=== PATIENT | male | born 1965 | race African-American/Black ===

== ENCOUNTER 2016-11-03 09:43 | Emergency (ER) | payer MEDICAID ==
[~2016-11-03] VITALS: Ht 172.7 cm; Wt 63.0 kg
[2016-11-03] MEDS ORDERED: SODIUM CHLORIDE 0.9% 1,000 ML IV ONE (10:43)
[2016-11-03] MEDS ORDERED: ONDANSETRON HCL 4MG/2ML VIAL IV STA (10:43)
[2016-11-03] MEDS ORDERED: KETOROLAC 30MG/ML VIAL IV STA (10:43)
[2016-11-03] MEDS ORDERED: ALBUTEROL (0.083%) 2.5MG/3ML NEB HHN STA (10:43)
[2016-11-03] MEDS ORDERED: FAMOTIDINE 20MG/2ML VIAL IV STA (10:43)
[2016-11-03] MEDS ORDERED: IPRATROPIUM BROMIDE (0.02%) 0.5MG/2.5ML NEB HHN STA (10:43)
[2016-11-03 11:10] LABS: BASOPHILS % 0.9 % (0.0-2.0); EOSINOPHILS % 0.6 % (0.0-5.0); HEMATOCRIT. 45.9 % (42.0-52.0); HEMOGLOBIN. 15.9 g/dL (14.0-18.0); LYMPHOCYTES % 25.2 % (20.0-50.0); MEAN CORPUSCULAR HEMOGLOBIN 30.8 pg (28.0-32.0); MEAN CORPUSCULAR VOLUME 88.9 fL (80.0-94.0); MEAN PLATELET VOLUME 6.5 fl (7.4-10.4); MONOCYTES % 8.9 % (2.0-8.0); NEUTROPHILS % 64.4 % (40.0-76.0); PLATELET 236 x1000/uL (130-400); RED BLOOD CELL COUNT 5.16 mill/uL (4.7-6.1)
[2016-11-03 11:23] LABS: CARBON DIOXIDE 29 mEq/L (21-32); CHLORIDE 105 mEq/L (98-107); ETHANOL BLOOD < 10 mg/dL
[2016-11-03] MEDS ORDERED: ONDANSETRON HCL 4MG/2ML VIAL IV NR (11:45)
[2016-11-03 14:26] VITALS: BP 123/75
[2016-11-03 14:27] LABS: CLARITY URINE CLEAR (CLEAR); COLOR URINE YELLOW (YELLOW); GLUCOSE URINE NEGATIVE (NEGATIVE); KETONES URINE NEGATIVE (NEGATIVE); LEUKOCYTE ESTERASE URINE NEGATIVE (NEGATIVE); NITRITE URINE NEGATIVE (NEGATIVE); OCCULT BLOOD URINE NEGATIVE (NEGATIVE); PH URINE 6.5 (4.5-8.0); PROTEIN URINE NEGATIVE (NEGATIVE); SPECIFIC GRAVITY URINE 1.007 (1.005-1.030)
== END 2016-11-03 14:29 | disposition home or self-care (01) ==
LOC: ER 10:55
DX: K52.9 Noninfective gastroenteritis and colitis, unspecified (principal); J06.9 Acute upper respiratory infection, unspecified; R03.0 Elevated blood-pressure reading, without diagnosis of hypertension; E11.9 Type 2 diabetes mellitus without complications; Z91.19 Patient's noncompliance with other medical treatment and regimen; J40 Bronchitis, not specified as acute or chronic
CPT/HCPCS: 36415; 71020; 80053; 81003; 83690; 85025; 94640; 96361; 96374; 96375; 99285; G0482; J1885; J2405; J3490; J7030; J7611; Z7610

== ENCOUNTER 2017-03-14 20:21 | Emergency (ER) | payer MEDICAID ==
[~2017-03-14] VITALS: Ht 172.7 cm; Wt 63.0 kg
[2017-03-14 21:01] LABS: CLARITY URINE CLEAR (CLEAR); COLOR URINE YELLOW (YELLOW); KETONES URINE NEGATIVE (NEGATIVE); LEUKOCYTE ESTERASE URINE NEGATIVE (NEGATIVE); NITRITE URINE NEGATIVE (NEGATIVE); OCCULT BLOOD URINE NEGATIVE (NEGATIVE); PH URINE 5.5 (4.5-8.0); PROTEIN URINE NEGATIVE (NEGATIVE); SPECIFIC GRAVITY URINE 1.009 (1.005-1.030)
[2017-03-15] MEDS ORDERED: IPRATROPIUM/ALBUTEROL 0.5-3(2.5)MG/3ML NEB HHN SCH (03:45)
[2017-03-15] MEDS ORDERED: KETOROLAC 30MG/ML VIAL IM ONE (04:00)
[2017-03-15] MEDS ORDERED: ONDANSETRON 4MG ODT PO ONE (04:00)
[2017-03-15 04:01] LABS: BASOPHILS % 0.6 % (0.0-2.0); EOSINOPHILS % 1.4 % (0.0-5.0); HEMATOCRIT. 44.9 % (42.0-52.0); HEMOGLOBIN. 15.4 g/dL (14.0-18.0); LYMPHOCYTES % 25.7 % (20.0-50.0); MEAN CORPUSCULAR HEMOGLOBIN 30.3 pg (28.0-32.0); MEAN CORPUSCULAR VOLUME 88.6 fL (80.0-94.0); MEAN PLATELET VOLUME 6.8 fl (7.4-10.4); NEUTROPHILS % 61.3 % (40.0-76.0); PLATELET 233 x1000/uL (130-400); RED BLOOD CELL COUNT 5.07 mill/uL (4.7-6.1); RED CELL DISTRIBUTION WIDTH 12.8 % (11.6-14.6)
[2017-03-15 04:07] LABS: INR 1.1
[2017-03-15 04:12] LABS: CARBON DIOXIDE 31 mEq/L (21-32); CHLORIDE 95 mEq/L (98-107)
[2017-03-15 06:42] VITALS: BP 111/82
== END 2017-03-15 07:00 | disposition home or self-care (01) ==
LOC: ER 21:03
DX: J45.901 Unspecified asthma with (acute) exacerbation (principal); E11.9 Type 2 diabetes mellitus without complications; F17.210 Nicotine dependence, cigarettes, uncomplicated
CPT/HCPCS: 36415; 71010; 80053; 81003; 85025; 85610; 94640; 96372; 99285; J1885; J7620; Q0162; Z7610

== ENCOUNTER 2024-02-28 18:20 | Emergency (ER) | payer MEDICAID, OTHER ==
[~2024-02-28] VITALS: Ht 172.7 cm; Wt 59.0 kg
[2024-02-28 19:08] VITALS: O2SAT 100
[2024-02-28] MEDS: ACETAMINOPHEN 325MG TABLET PO ONE (21:50)
[2024-02-28 22:00] LABS: BASOPHILS % 0.9 % (0.0-2.0); EOSINOPHILS % 1.9 % (0.0-5.0); HEMATOCRIT. 44.8 % (42.0-52.0); HEMOGLOBIN. 14.9 g/dL (14.0-18.0); LYMPHOCYTES % 19.5 % (20.0-50.0); MEAN CORPUSCULAR HEMOGLOBIN 30.1 pg (28.0-32.0); MEAN CORPUSCULAR HGB CONC 33.3 g/dL (31.0-37.0); MEAN CORPUSCULAR VOLUME 90.4 fL (80.0-94.0); MEAN PLATELET VOLUME 6.8 fl (7.4-10.4); MONOCYTES % 7.9 % (2.0-8.0); NEUTROPHILS % 69.8 % (40.0-76.0); PLATELET 241 x1000/uL (130-400); RED BLOOD CELL COUNT 4.95 mill/uL (4.7-6.1)
[2024-02-28 22:03] LABS: CHLORIDE 107 mEq/L (98-107); POTASSIUM 4.4 mEq/L (3.5-5.1); SODIUM 140 mEq/L (136-145)
[2024-02-28 22:04] LABS: CARBON DIOXIDE 29 mEq/L (21-32)
[2024-02-28 22:05] LABS: CALCIUM 9.3 mg/dL (8.7-10.4)
[2024-02-28 22:10] LABS: GLUCOSE 84 mg/dL (70-105); UREA NITROGEN BLOOD 9 mg/dL (9-23)
[2024-02-28] MEDS ORDERED: ACET-2708 MT (22:59)
[2024-02-28] MEDS ORDERED: CYCL10TA21 MT (22:59)
[2024-02-28 23:06] VITALS: BP 120/80; PULSE 75; RESP 16; TEMP 36.83628; O2SAT 100
== END 2024-02-28 23:09 | disposition home or self-care (01) ==
LOC: ER 18:20
DX: G89.29 Other chronic pain (principal); M54.50 Low back pain, unspecified; M79.10 Myalgia, unspecified site; Z88.6 Allergy status to analgesic agent
CPT/HCPCS: 36415; 80048; 85025; 99283

== ENCOUNTER 2024-12-16 21:44 | Emergency (ER) | payer OTHER ==
[~2024-12-16] VITALS: Ht 172.7 cm; Wt 56.0 kg
[~2024-12-16 21:44] MED LIST: ACET-2708 MT; CYCL10TA21 MT
[2024-12-16 22:27] VITALS: O2SAT 99
[2024-12-16] MEDS ORDERED: BO1 TP (22:38)
[2024-12-16] MEDS ORDERED: AMOX1TAB16 MT (22:38)
[2024-12-16 23:28] VITALS: BP 120/79; PULSE 78; RESP 20; TEMP 36.8; O2SAT 99
== END 2024-12-16 23:30 | disposition home or self-care (01) ==
LOC: ER 21:59
DX: S61.531A Puncture wound without foreign body of right wrist, initial encounter (principal); S61.532A Puncture wound without foreign body of left wrist, initial encounter; Z88.6 Allergy status to analgesic agent; W54.0XXA Bitten by dog, initial encounter; Y93.89 Activity, other specified; Y92.89 Other specified places as the place of occurrence of the external cause; Y99.8 Other external cause status
CPT/HCPCS: 99283